=== PATIENT | male | born 1950 | race African-American/Black ===

== ENCOUNTER 2018-01-15 12:49 | Outpatient (CLI) | payer MEDICARE ==
--- NOTE | 2018-01-15 15:45 | MRI ---
MRI OF ABDOMEN WITHOUT CONTRAST: Date: 01/15/18 COMPARISON: 07/18/17. HISTORY: Malignant neoplasm of colon with hepatic metastasis. Status post chemotherapy. TECHNIQUE: Multiplanar, multisequence MR images were obtained of the abdomen without contrast. FINDINGS: No focal liver lesions are appreciated on this noncontrast examination. No loss of signal is seen on [id number]-gnabl images to suggest fatty infiltration. There is a large cyst in the right kidney measured 7.9 cm in greatest dimension. No abnormality seen in the left kidney, adrenal glands, spleen, or pancreas. The gallbladder is unremarkable. No abdominal adenopathy is seen. No marrow signal abnormality is present. IMPRESSION: 1. No focal hepatic abnormality. 2. Right renal cyst. POS: [facility]
--- NOTE | 2018-01-15 17:54 | PET ---
PET CT: 01/15/18 HISTORY: 67-year-old male with metastatic colon cancer. Status post last chemotherapy in June 2017. TECHNIQUE: PET scan and CT attenuation correction is performed from the base of the brain to the proximal thighs following intravenous administration of 13 millicuries 15-fluorodeoxyglucose in the left antecubital fossa. Imaging was performed after an uptake interval of 54 minutes. COMPARISON: PET CT dated 10/18/17 from [facility]. FINDINGS: There is physiologic activity in the GI and tracts, salivary glands, and visualized portions of th e brain. The previously noted hypermetabolic activity in the left tonsillar region has resolved. The hypermetabolic focus is seen in the region of the anterior aspect of the lateral segment of the l eft lobe of the liver with an SUV of 4.5. This is new since the last exam. No nargis hypermetabolism is seen in the neck, chest, abdomen, or pelvis. There is an 8 mm left inguin al lymph node with mild FDG localization and SUV of 2. No hypermetabolic pulmonary nodules, adrenal or skeletal lesions are seen. The CT scan used for attenuation correction demonstrates tiny pleural effusions. No ascites is identi fied. A 5.5 cm cortical cyst arising from the inferior right kidney is stable. Changes of right hemic olectomy are again noted. IMPRESSION: New solitary left lobe hepatic metastasis since 10/18/17. POS: [facility]
== END 2018-01-15 12:50 | disposition home or self-care (01) ==
LOC: PET 12:49
PROVIDERS: ATTEND Internal Medicine Hematology & Oncology
DX: C18.9 Malignant neoplasm of colon, unspecified (principal); N28.1 Cyst of kidney, acquired; C78.02 Secondary malignant neoplasm of left lung
CPT/HCPCS: 74181; 78815; A9552

== ENCOUNTER 2018-03-28 11:02 | Outpatient (CLI) | payer MEDICARE ==
--- NOTE | 2018-03-28 16:12 | PET ---
PET ATTENUATION CORRECTION: 03/28/18 COMPARISON: 01/15/18 TECHNIQUE: PET scan with CT attenuation correction performed from the base of the brain to the proximal thighs f ollowing the intravenous administration of 10.3 millicuries of [id number]. HISTORY: Hepatic metastases secondary to colon cancer. FINDINGS: HEAD AND NECK: No abnormal FDG localization. CHEST: No abnormal FDG localization. ABDOMEN AND PELVIS: Redemonstration of a hyper metabolic focus involving the left hepatic lobe with a current SUV of 5.4. Previously, maximum SUV measures 4.5. There is a new, second hypermetabolic focus in the liver in the lateral aspect of the left hepatic lo be with a maximum SUV of 4.3. Additional hypermetabolic nodules in the liver are not appreciated. No additional abnormal FDG localization in the abdomen or pelvis. CT used for attenuation correction de monstrates exophytic cysts in the right kidney. OSSEOUS STRUCTURES: No abnormal FDG localization. IMPRESSION: Increased FDG avidity is suspected in the lesion in the left hepatic lobe which was noted on previous PET imaging. There is a new second lesion in the hepatic parenchyma suggesting progression of metast ases. POS: [facility]
== END 2018-03-28 11:03 | disposition home or self-care (01) ==
LOC: PET 11:02
PROVIDERS: ATTEND Internal Medicine Hematology & Oncology
DX: C78.7 Secondary malignant neoplasm of liver and intrahepatic bile duct (principal); C18.9 Malignant neoplasm of colon, unspecified; N28.9 Disorder of kidney and ureter, unspecified
CPT/HCPCS: 78815; A9552

== ENCOUNTER 2018-06-27 09:00 | Outpatient (CLI) | payer MEDICARE ==
--- NOTE | 2018-06-27 16:13 | PET ---
PET CT: INDICATION: Colon cancer. RADIOPHARMACEUTICAL: 14 mCi F18-FDG IV were administered. CT images were obtained from the skull base through the mid thighs. Comparison made with prior exam dated 03/28/18. FINDINGS: The biodistribution for the examination appears acceptable. Head/Neck: There is some mild metabolic uptake seen involving the region of the palatine tonsils, vocal cords, a nd salivary glands. There is some mild uptake seen within the musculature of the neck, as well as the upper torso. No hypermetabolic lymphadenopathy or mass is seen within the head or neck region. Thorax: No hypermetabolic pulmonary nodule or pleural effusion is evident. No hypermetabolic lymphadenopathy is evident. There is a right chest wall port in place. There is severe emphysema. There is a calcifie d granuloma in the right lower lobe. ABDOMEN/PELVIS: The previously seen hypermetabolic foci within the left hepatic lobe suspicious for metastatic diseas e is no longer demonstrated. There is background liver activity present. There is a prominent right r enal cyst. No hypermetabolic lymphadenopathy or ascites is evident. Skin/Osseous Structures: There is a nonspecific mildly hypermetabolic right inguinal lymph node measuring 1.1 cm with a peak a ctivity of 3.97 and mean activity of 3.44. This is new from the prior exam. There is an additional hy permetabolic focus seen involving the skin of the right aspect of the scrotum on image 239 with peak SUV activity of 5.07 and mean activity of 5.76. This is nonspecific, but new from the prior exam. No hypermetabolic osseous lesion is identified. IMPRESSION: 1. Findings consistent with response to therapy. The hypermetabolic lesions involving the left hepat ic lobe are no longer demonstrated. Would recommend consideration for a CT of the abdomen utilizing l iver mass protocol to evaluate the lesions for response to therapy. The extent of the background radi onuclide activity on the noncontrast PET CT examination limits evaluation for smaller metastatic lesi ons within the liver. 2. Nonspecific hypermetabolic right inguinal lymph node and hypermetabolic activity seen within the right aspect of the scrotal wall. This may reflect a localized infection with reactive lymphadenopath y. Recommend correlation with the clinical exam. POS: [facility]
== END 2018-06-27 09:01 | disposition home or self-care (01) ==
LOC: PET 09:00
PROVIDERS: ATTEND Internal Medicine Hematology & Oncology
DX: C18.9 Malignant neoplasm of colon, unspecified (principal); N18.9 Chronic kidney disease, unspecified; K76.9 Liver disease, unspecified
CPT/HCPCS: 78815; A9552

== ENCOUNTER 2019-02-25 13:46 | Outpatient (CLI) | payer MEDICARE ==
--- NOTE | 2019-02-25 15:58 | PET ---
PET CT: HISTORY: A 68-year-old male with malignant neoplasm of the ascending colon. Colon cancer with liver metastasis . Evaluate for subsequent treatment. Last chemotherapy was on 02/12/2019. COMPARISON: PET CT dated 10/17/2018. TECHNIQUE: PET scanning with CT attenuation correction was performed from the base of the brain through the prox imal thighs following the intravenous administration of 12.2 millicuries of F18 fluorodeoxyglucose in the right antecubital fossa. FINDINGS: No nargis hypometabolism is seen in the neck, chest, axillae, abdomen, pelvis or inguinal regions. No hypermetabolic pulmonary nodules or liver, adrenal or skeletal lesions are seen. There is physiologic activity in the GI and tracts and in the visualized portions of the brain. Th ere is photopenia in the region of a large right renal cyst. CT scan used for attenuation correction demonstrates no evidence of pleural effusions or ascites. The re is a 6.5 cm cyst arising from the inferior pole of the right kidney. IMPRESSION: No evidence of metastatic disease. POS: [facility]
== END 2019-02-25 13:47 | disposition home or self-care (01) ==
LOC: PET 13:46
PROVIDERS: ATTEND Internal Medicine Hematology & Oncology
DX: C18.2 Malignant neoplasm of ascending colon (principal); C22.9 Malignant neoplasm of liver, not specified as primary or secondary
CPT/HCPCS: 78815; A9552

== ENCOUNTER 2019-05-27 08:04 | Outpatient (CLI) | payer MEDICARE, OTHER ==
--- NOTE | 2019-05-27 12:01 | PET ---
PET CT: HISTORY: A 68-year-old male with malignant neoplasm of ascending colon. Colon cancer with liver metastasis. Evaluate for subsequent treatment. Last chemotherapy was 2 weeks ago. TECHNIQUE: PET scanning with CT attenuation correction was performed from the base of the brain through the prox imal thighs following the intravenous administration of 10.5 mCi [id number] in the right hand. COMPARISON: PET CT dated 02/25/2019. FINDINGS: No nargis hypermetabolism is seen in the neck, chest, axillae, abdomen, pelvis, or inguinal regions. No hypermetabolic pulmonary nodules or liver, adrenal, or skeletal lesions are identified. A focus of increased uptake is seen in the region of the right ascending colon where adjacent postop changes are noted on the CT scan. This demonstrates an SUV of 4.6 and should be evaluated with colon oscopy. There is physiologic activity in the GI and tracts, visualized portions of the brain, and the sali vary glands. Photopenia in the region of a large right renal cyst is again seen. CT scan used for attenuation correction demonstrates no evidence of pleural or pericardial effusions. IMPRESSION: 1. No evidence of metastatic disease. 2. Hypermetabolic focus in the ascending colon should be evaluated with colonoscopy. POS: [facility]
== END 2019-05-27 08:05 | disposition home or self-care (01) ==
LOC: PET 08:04
PROVIDERS: ATTEND Internal Medicine Hematology & Oncology
DX: C18.2 Malignant neoplasm of ascending colon (principal); C22.9 Malignant neoplasm of liver, not specified as primary or secondary; R94.8 Abnormal results of function studies of other organs and systems
CPT/HCPCS: 78815; A9552

== ENCOUNTER 2020-03-23 09:00 | Outpatient (CLI) | payer MEDICARE, OTHER ==
--- NOTE | 2020-03-23 11:35 | PET ---
Radionucleotide PET scan with CT attenuation correction HISTORY: Malignant neoplasm of a sending colon. Restaging. COMPARISON: 12/09/2019. FINDINGS: Physiologic uptake is evident throughout the enteric system and along each urinary tract.. No pathologic areas of radiotracer uptake. Photopenic defect apparent at the large right renal cyst. Postoperative changes of the right colon are apparent. IMPRESSION : No evidence of recurrent disease.
== END 2020-03-23 09:01 | disposition home or self-care (01) ==
LOC: PET 09:00
PROVIDERS: ATTEND Internal Medicine Hematology & Oncology
DX: C18.2 Malignant neoplasm of ascending colon (principal)
CPT/HCPCS: 78815; A9552

== ENCOUNTER 2020-06-22 08:57 | Outpatient (CLI) | payer MEDICARE, OTHER | END 2020-06-22 08:58 | disposition home or self-care (01) | LOC: PET 08:57 | PROVIDERS: ATTEND Internal Medicine Hematology & Oncology | DX: C18.2 Malignant neoplasm of ascending colon (principal) | CPT/HCPCS: 78815; A9552 ==

== ENCOUNTER 2020-06-28 13:25 | Outpatient (CLI) | payer MEDICARE, OTHER ==
[~2020-06-28 13:25] MED LIST: Iopamidol 300 61% 50 ML VIAL FS ONE
[2020-06-28] MEDS ORDERED: Sodium Chloride 0.9% 10 ML ONE (13:39)
== END 2020-06-28 13:26 | disposition home or self-care (01) ==
LOC: RAD 13:25
PROVIDERS: ATTEND Internal Medicine Hematology & Oncology
DX: Z45.2 Encounter for adjustment and management of vascular access device (principal); C18.2 Malignant neoplasm of ascending colon
CPT/HCPCS: 36598; J1642; Q9967

== ENCOUNTER 2020-07-05 10:28 | Outpatient (CLI) | payer MEDICARE, OTHER ==
[2020-07-05 12:18] LABS: #Basophils 0.1 10x3/uL (0.0-0.2); #Eosinphils 0.4 10x3/uL (0.0-0.5); #Monocytes 0.8 10x3/uL (0.0-1.1); #Neutrophils 7.1 10x3/uL (1.5-8.4); %Basophils 0.6 % (0.0-2.0); %Eosinophils 3.8 % (0.0-6.0); %Lymphocytes 14.5 % (18.0-47.0); %Monocytes 7.7 % (0.0-10.0); %Neutrophils 72.4 % (40.0-75.0); Hemoglobin 11.6 g/dL (13.5-17.5); Mean Corpuscular HGB CONC 32.7 g/dL (32.0-36.0); Mean Corpuscular Hemoglobin 30.4 pg (27.0-33.0); Mean Corpuscular Volume 93.2 fl (81.2-95.1); Mean Platelet Volume 10.2 fl (7.4-10.4); Platelet Count 297 10x3/uL (150-450); RBC Distribution Width 17.8 % (11.5-14.5); Red Blood Cell (RBC) Count 3.81 10x6/uL (4.32-5.72); White Blood Cell (WBC) Count 9.8 10x3/uL (3.5-10.5)
[2020-07-05 12:27] LABS: Anion Gap 18 mmol/L (10-20); BUN (Urea Nitrogen) 25 mg/dL (8.4-25.7); Calc. Creatinine Clearance 0 mL/min (70-130); Calcium 9.1 mg/dL (7.8-10.44); Carbon Dioxide 25 mmol/L (23-31); Chloride 103 mmol/L (98-107); Glucose 82 mg/dL (80-115); Potassium 3.7 mmol/L (3.5-5.1); Sodium 142 mmol/L (136-145)
[2020-07-06 01:17] LABS: SARS-CoV-2 PCR by NAA Not Detected (NotDetected)
== END 2020-07-05 10:29 | disposition home or self-care (01) ==
LOC: LABBT 10:28
PROVIDERS: ATTEND Internal Medicine Hematology & Oncology
DX: Z01.818 Encounter for other preprocedural examination (principal); Z20.822 Contact with and (suspected) exposure to COVID-19
CPT/HCPCS: 80048; 85025; 93005; U0003; U0005; 87635; 93010

== ENCOUNTER 2020-07-08 10:17 | Day surgery (SDC) | payer MEDICARE, OTHER ==
[2020-07-07 12:16] VITALS: BMI 21.9
[2020-07-08] MEDS ORDERED: Lidocaine 1% w/Epinephrine 1:100K 20 ML VIAL ONE (10:36)
[2020-07-08] MEDS ORDERED: Bupivacaine 0.25% HCL 30 ML VIAL ONE (10:36)
[2020-07-08] MEDS ORDERED: Acetaminophen 500 MG TAB ONE (10:37)
[2020-07-08] MEDS ORDERED: Ketorolac Tromethamine 30 MG/ML VIAL ONE (10:37)
[2020-07-08] MEDS ORDERED: Fentanyl 100 MCG/2 ML VIAL ONE (11:35)
[2020-07-08] MEDS ORDERED: PROPOFOL 200 MG/20 ML VIAL ONE (11:53)
[2020-07-08] MEDS ORDERED: Dexamethasone 20 MG/5 ML VIAL ONE (11:53)
[2020-07-08] MEDS ORDERED: ePHEDrine Sulfate 50 MG/10 ML VIAL ONE (11:53)
[2020-07-08] MEDS ORDERED: Ondansetron PF 4 MG/2 ML Vial ONE (11:53)
== END 2020-07-08 14:20 | disposition home or self-care (01) ==
LOC: SDC 10:17
PROVIDERS: ATTEND Specialist
PROC: 02HV33Z Insertion of Infusion Device into Superior Vena Cava, Percutaneous Approach (ICD-10-PCS; principal; 2020-07-08)
DX: T82.868A Thrombosis due to vascular prosthetic devices, implants and grafts, initial encounter (principal); C18.9 Malignant neoplasm of colon, unspecified; I10 Essential (primary) hypertension; F17.210 Nicotine dependence, cigarettes, uncomplicated; J45.909 Unspecified asthma, uncomplicated; Z79.899 Other long term (current) drug therapy; I82.C11 Acute embolism and thrombosis of right internal jugular vein
CPT/HCPCS: 36561; 36590; 71045; 71260; 93971 ×2; C1788; J0690; J1100; J1642; J1885; J2405; J2704; J3010; S0020

== ENCOUNTER 2020-10-28 | Outpatient (CLI) | payer MEDICARE, OTHER | END 2020-10-28 12:27 | disposition home or self-care (01) | DX: C18.2 Malignant neoplasm of ascending colon (principal) | CPT/HCPCS: 78815; A9552 ==

== ENCOUNTER 2021-01-10 10:46 | Inpatient (IN) | payer MEDICARE, OTHER ==
[2021-01-10 11:45] LABS: #Basophils 0.1 thou/uL (0.0-0.2); #Eosinphils 0.2 thou/uL (0.0-0.7); #Lymphocytes 2.6 thou/uL (1.20-3.40); #Monocytes 1.7 thou/uL (0.11-0.59); #Neutrophils 9.5 thou/uL (1.40-6.50); %Basophils 1.1 % (0.0-1.0); %Eosinophils 1.4 % (0.0-10.0); %Lymphocytes 18.5 % (21.0-51.0); %Monocytes 11.9 % (0.0-10.0); %Neutrophils 67.2 % (42.0-75.0); Hemoglobin 10.2 g/dL (14.0-18.0); Mean Corpuscular HGB CONC 32.6 g/dL (32.0-36.0); Mean Corpuscular Hemoglobin 31.6 pg (27.0-31.0); Mean Platelet Volume 8.2 fL (7.4-10.4); Platelet Count 208 thou/uL (130-400); RBC Distribution Width 17.4 % (11.5-14.5); Red Blood Cell (RBC) Count 3.24 mill/uL (4.70-6.10); White Blood Cell (WBC) Count 14.2 thou/uL (4.8-10.8)
[2021-01-10 12:15] LABS: ALT (SGPT) 11 U/L (8-55); AST (SGOT) 21 U/L (5-34); Albumin 3.1 g/dL (3.4-4.8); Alkaline Phosphatase 92 U/L (40-110); Anion Gap 17 mmol/L (10-20); BUN (Urea Nitrogen) 29 mg/dL (8.4-25.7); Bilirubin, Total 0.9 mg/dL (0.2-1.2); Calc. Creatinine Clearance 0 mL/min (70-130); Calcium 9.7 mg/dL (7.8-10.44); Carbon Dioxide 22 mmol/L (23-31); Chloride 101 mmol/L (98-107); Globulin 4.2 g/dL (2.4-3.5); Glucose 87 mg/dL (80-115); Potassium 4.3 mmol/L (3.5-5.1); Protein, Total 7.3 g/dL (5.8-8.1); Sodium 136 mmol/L (136-145)
[2021-01-10 12:28] LABS: SARS-CoV-2 NAA Rapid Test Not Detected (NotDetected)
[2021-01-10] MEDS ORDERED: Cefepime 2 GM VIAL ONE (13:05)
[2021-01-10] MEDS ORDERED: Vancomycin 1 GM/200 ML BAG ONE (14:11)
[2021-01-10 14:33] LABS: Analyzer IN Cardio ER
[2021-01-10 14:34] LABS: Actual Bicarbonate (HCO3v) 26 mEq/L (22-28); Base Excess 0.7 mEq/L (-2.0 to +3.0); Hemoglobin (Hb) 10.5 g/dL (12.6-17.4)
[2021-01-10 14:35] LABS: Calcium, Ionized (venous) 1.21 mmol/L (1.16-1.32); Chloride (VBG) 99 mmol/L (98-106); Sodium 142.1 mmol/L (133-146)
[2021-01-10] MEDS ORDERED: Acetaminophen 325 MG TAB PER TUBE PRN (18:23)
[2021-01-10] MEDS ORDERED: Atorvastatin Calcium 40 MG TAB PER TUBE SCH (21:00)
[2021-01-10 21:41] LABS: Iron 24 ug/dL (65-175); Iron Binding Capacity, Total 236 mcg/dL (261-462)
[2021-01-10 21:44] LABS: Troponin I 0.022 ng/mL (< 0.028)
[2021-01-10] MEDS: levETIRAcetam 500 mg/5 ml Oral Solution PER TUBE SCH (22:02)
[2021-01-10 22:06] LABS: Ferritin 1418.64 ng/mL (22-322)
[2021-01-10] MEDS ORDERED: Vancomycin HCl 500 MG in Sodium Chloride 0.9% 100 ML IVPB SCH (23:00)
[2021-01-11] MEDS: Cefepime 2 GM in Sodium Chloride 0.9% 100 ML IVPB SCH ×2 (01:10→14:22)
[2021-01-11 02:06] LABS: Troponin I 0.016 ng/mL (< 0.028)
[2021-01-11 05:23] LABS: #Basophils 0.1 thou/uL (0.0-0.2); #Eosinphils 0.5 thou/uL (0.0-0.7); #Lymphocytes 2.1 thou/uL (1.20-3.40); #Monocytes 1.4 thou/uL (0.11-0.59); #Neutrophils 6.8 thou/uL (1.40-6.50); %Basophils 0.7 % (0.0-1.0); %Eosinophils 4.4 % (0.0-10.0); %Lymphocytes 19.5 % (21.0-51.0); %Neutrophils 62.5 % (42.0-75.0); Hemoglobin 10.1 g/dL (14.0-18.0); Mean Corpuscular HGB CONC 33.5 g/dL (32.0-36.0); Mean Corpuscular Hemoglobin 32.7 pg (27.0-31.0); Mean Corpuscular Volume 97.7 fL (78.0-98.0); Mean Platelet Volume 8.4 fL (7.4-10.4); Platelet Count 180 thou/uL (130-400); RBC Distribution Width 17.4 % (11.5-14.5); Red Blood Cell (RBC) Count 3.09 mill/uL (4.70-6.10); White Blood Cell (WBC) Count 10.8 thou/uL (4.8-10.8)
[2021-01-11 05:39] LABS: Anion Gap 16 mmol/L (10-20); BUN (Urea Nitrogen) 32 mg/dL (8.4-25.7); Calc. Creatinine Clearance 34 mL/min (70-130); Calcium 9.6 mg/dL (7.8-10.44); Carbon Dioxide 25 mmol/L (23-31); Chloride 104 mmol/L (98-107); Glucose 70 mg/dL (80-115); Potassium 4.2 mmol/L (3.5-5.1); Sodium 141 mmol/L (136-145)
[2021-01-11 05:44] LABS: Troponin I 0.026 ng/mL (< 0.028)
[2021-01-11] MEDS ORDERED: Enoxaparin Sodium 30 MG/0.3 ML SYRINGE SC SCH (09:00)
[2021-01-11] MEDS ORDERED: Aspirin 325 MG TAB PER TUBE SCH (09:00)
[2021-01-11] MEDS ORDERED: Amlodipine 10 MG TAB PER TUBE SCH (09:00)
[2021-01-11] MEDS: levETIRAcetam 500 mg/5 ml Oral Solution PER TUBE SCH ×2 (09:08→20:30)
[2021-01-11 13:09] LABS: Bacteria/HPF None Seen HPF (None Seen); Bilirubin Negative (Negative); Blood, Urine 3+ (Negative); Clarity Clear (Clear); Glucose, Urine (Dipstick) Normal (Negative); Ketone, Urine Negative (Negative); Leukocyte Negative Leu/uL (Negative); Nitrite Negative (Negative); Protein, Urine (Dipstick) 100 mg/dL (Neg-Trace); RBC/HPF 21-50 HPF (0-3); Specific Gravity, Urine 1.015 (1.002-1.036); Urobilinogen Normal mg/dL (Less than 2); WBC/HPF 21-50 HPF (0-3)
[2021-01-11 13:15] LABS: Urine Culture Reflex No No
[2021-01-11 13:41] LABS: Legionella Urinary Ag Negative (Negative); Strep pneumo Urine Ag NEGATIVE (NEGATIVE)
[2021-01-11] MEDS: Melatonin 3 MG TAB PER TUBE SCH (20:29)
[2021-01-11] MEDS: Saccharomyces boulardii 250 MG CAP PER TUBE SCH (20:29)
[2021-01-11] MEDS: Atorvastatin Calcium 40 MG TAB PER TUBE SCH (20:30)
[2021-01-11] MEDS ORDERED: Vancomycin 1 GM in Premix Bag 1 BAG IVPB SCH (21:00)
[2021-01-11] MEDS ORDERED: Cefepime 2 GM in Sodium Chloride 0.9% 100 ML IVPB SCH (22:00)
[2021-01-12] MEDS: Cefepime 2 GM in Sodium Chloride 0.9% 100 ML IVPB SCH ×2 (01:21→14:11)
[2021-01-12 06:34] LABS: #Basophils 0.1 thou/uL (0.0-0.2); #Lymphocytes 2.4 thou/uL (1.20-3.40); #Monocytes 1.5 thou/uL (0.11-0.59); #Neutrophils 6.6 thou/uL (1.40-6.50); %Eosinophils 8.5 % (0.0-10.0); %Lymphocytes 20.6 % (21.0-51.0); %Monocytes 13.1 % (0.0-10.0); %Neutrophils 56.8 % (42.0-75.0); Mean Corpuscular HGB CONC 34.4 g/dL (32.0-36.0); Mean Corpuscular Hemoglobin 33.1 pg (27.0-31.0); Mean Corpuscular Volume 96.3 fL (78.0-98.0); Mean Platelet Volume 8.4 fL (7.4-10.4); Platelet Count 217 thou/uL (130-400); RBC Distribution Width 18.1 % (11.5-14.5); Red Blood Cell (RBC) Count 3.02 mill/uL (4.70-6.10); White Blood Cell (WBC) Count 11.6 thou/uL (4.8-10.8)
[2021-01-12 06:46] LABS: Hemoglobin A1c 4.9 % (4.0-6.0)
[2021-01-12 07:01] LABS: ALT (SGPT) 14 U/L (8-55); AST (SGOT) 24 U/L (5-34); Albumin 2.9 g/dL (3.4-4.8); Alkaline Phosphatase 92 U/L (40-110); Anion Gap 16 mmol/L (10-20); BUN (Urea Nitrogen) 33 mg/dL (8.4-25.7); Bilirubin, Total 0.8 mg/dL (0.2-1.2); Calc. Creatinine Clearance 32 mL/min (70-130); Calcium 9.3 mg/dL (7.8-10.44); Carbon Dioxide 24 mmol/L (23-31); Cardiac Risk 2.8 (Less than 4.5); Chloride 106 mmol/L (98-107); Cholesterol 131 mg/dl (< 200 Desired); Globulin 3.7 g/dL (2.4-3.5); Glucose 117 mg/dL (80-115); HDL Cholesterol 46 mg/dL (>60 Neg Risk); LDL Cholesterol, Calculated 69 mg/dL; Potassium 4.1 mmol/L (3.5-5.1); Protein, Total 6.6 g/dL (5.8-8.1); Sodium 142 mmol/L (136-145); Triglycerides 82 mg/dL (Less than 150)
[2021-01-12] MEDS: Saccharomyces boulardii 250 MG CAP PER TUBE SCH ×2 (08:08→23:02)
[2021-01-12] MEDS: Pantoprazole 40 MG GRANULES PACKET PER TUBE SCH (08:08)
[2021-01-12] MEDS: Amlodipine 10 MG TAB PER TUBE SCH (08:08)
[2021-01-12] MEDS: FLUoxetine HCl 20 MG/5 ML UDCUP PO SCH (08:09)
[2021-01-12] MEDS: levETIRAcetam 500 mg/5 ml Oral Solution PER TUBE SCH ×2 (08:10→23:01)
[2021-01-12] MEDS ORDERED: Aspirin 325 MG TAB PER TUBE SCH (09:00)
[2021-01-12] MEDS ORDERED: Enoxaparin Sodium 40 MG/0.4 ML SYRINGE SC SCH (09:00)
[2021-01-12] MEDS ORDERED: Lorazepam 2 MG/ML VIAL SLOW IVP SCH (16:00)
[2021-01-12] MEDS ORDERED: Lorazepam 2 MG/ML VIAL ONE (16:10)
[2021-01-12] MEDS: Melatonin 3 MG TAB PER TUBE SCH (23:02)
[2021-01-12] MEDS: Atorvastatin Calcium 40 MG TAB PER TUBE SCH (23:02)
[2021-01-13] MEDS: Cefepime 2 GM in Sodium Chloride 0.9% 100 ML IVPB SCH ×2 (00:11→13:15)
[2021-01-13] MEDS: Pantoprazole 40 MG GRANULES PACKET PER TUBE SCH (08:32)
[2021-01-13] MEDS: Saccharomyces boulardii 250 MG CAP PER TUBE SCH ×2 (08:32→21:26)
[2021-01-13] MEDS: Amlodipine 10 MG TAB PER TUBE SCH (08:32)
[2021-01-13] MEDS ORDERED: FLU VACC QS2021-22(65YR UP)/PF 240 MCG/0.7 ML SYRINGE IM ONE (09:00)
[2021-01-13 09:25] LABS: #Basophils 0.1 thou/uL (0.0-0.2); #Eosinphils 1.1 thou/uL (0.0-0.7); #Lymphocytes 2.7 thou/uL (1.20-3.40); #Monocytes 1.6 thou/uL (0.11-0.59); #Neutrophils 6.9 thou/uL (1.40-6.50); %Basophils 0.8 % (0.0-1.0); %Eosinophils 8.7 % (0.0-10.0); %Lymphocytes 21.7 % (21.0-51.0); %Monocytes 12.8 % (0.0-10.0); %Neutrophils 55.9 % (42.0-75.0); Hemoglobin 9.9 g/dL (14.0-18.0); Mean Corpuscular HGB CONC 32.5 g/dL (32.0-36.0); Mean Corpuscular Hemoglobin 31.6 pg (27.0-31.0); Mean Corpuscular Volume 97.1 fL (78.0-98.0); Mean Platelet Volume 8.9 fL (7.4-10.4); Platelet Count 223 thou/uL (130-400); Red Blood Cell (RBC) Count 3.13 mill/uL (4.70-6.10); White Blood Cell (WBC) Count 12.3 thou/uL (4.8-10.8)
[2021-01-13 09:34] LABS: ALT (SGPT) 15 U/L (8-55); AST (SGOT) 19 U/L (5-34); Albumin 2.9 g/dL (3.4-4.8); Alkaline Phosphatase 102 U/L (40-110); Anion Gap 16 mmol/L (10-20); BUN (Urea Nitrogen) 38 mg/dL (8.4-25.7); Bilirubin, Total 0.9 mg/dL (0.2-1.2); Calc. Creatinine Clearance 32 mL/min (70-130); Calcium 9.2 mg/dL (7.8-10.44); Carbon Dioxide 25 mmol/L (23-31); Chloride 106 mmol/L (98-107); Globulin 3.8 g/dL (2.4-3.5); Glucose 120 mg/dL (80-115); Phosphorus 3.9 mg/dL (2.3-4.7); Protein, Total 6.7 g/dL (5.8-8.1); Sodium 143 mmol/L (136-145)
[2021-01-13] MEDS: FLUoxetine HCl 20 MG/5 ML UDCUP PO SCH (10:17)
[2021-01-13] MEDS: levETIRAcetam 500 mg/5 ml Oral Solution PER TUBE SCH ×2 (10:17→21:25)
[2021-01-13] MEDS ORDERED: Lactated Ringer's 500 ML IV SCH (10:45)
[2021-01-13] MEDS: Atorvastatin Calcium 40 MG TAB PER TUBE SCH (21:26)
[2021-01-13] MEDS: Melatonin 3 MG TAB PER TUBE SCH (21:26)
[2021-01-14] MEDS: Cefepime 2 GM in Sodium Chloride 0.9% 100 ML IVPB SCH (02:01)
[2021-01-14 05:38] LABS: #Basophils 0.1 thou/uL (0.0-0.2); #Lymphocytes 3.1 thou/uL (1.20-3.40); #Monocytes 1.5 thou/uL (0.11-0.59); #Neutrophils 8.7 thou/uL (1.40-6.50); %Basophils 0.7 % (0.0-1.0); %Eosinophils 7.2 % (0.0-10.0); %Lymphocytes 21.6 % (21.0-51.0); %Monocytes 10.3 % (0.0-10.0); %Neutrophils 60.1 % (42.0-75.0); Hemoglobin 10.1 g/dL (14.0-18.0); Mean Corpuscular HGB CONC 34.1 g/dL (32.0-36.0); Mean Corpuscular Hemoglobin 32.8 pg (27.0-31.0); Mean Corpuscular Volume 96.3 fL (78.0-98.0); Mean Platelet Volume 8.7 fL (7.4-10.4); Platelet Count 210 thou/uL (130-400); RBC Distribution Width 18.5 % (11.5-14.5); Red Blood Cell (RBC) Count 3.08 mill/uL (4.70-6.10); White Blood Cell (WBC) Count 14.4 thou/uL (4.8-10.8)
[2021-01-14 06:05] LABS: ALT (SGPT) 11 U/L (8-55); AST (SGOT) 18 U/L (5-34); Alkaline Phosphatase 105 U/L (40-110); Anion Gap 14 mmol/L (10-20); BUN (Urea Nitrogen) 40 mg/dL (8.4-25.7); Bilirubin, Total 0.9 mg/dL (0.2-1.2); Calc. Creatinine Clearance 30 mL/min (70-130); Calcium 9.6 mg/dL (7.8-10.44); Carbon Dioxide 25 mmol/L (23-31); Chloride 108 mmol/L (98-107); Globulin 3.7 g/dL (2.4-3.5); Glucose 98 mg/dL (80-115); Magnesium 1.9 mg/dL (1.6-2.6); Phosphorus 3.7 mg/dL (2.3-4.7); Protein, Total 6.7 g/dL (5.8-8.1); Sodium 143 mmol/L (136-145)
[2021-01-14] MEDS ORDERED: Furosemide 20 MG/2 ML VIAL SLOW IVP SCH ×2 (07:30→14:00)
[2021-01-14] MEDS: Amlodipine 10 MG TAB PER TUBE SCH (10:14)
[2021-01-14] MEDS: Saccharomyces boulardii 250 MG CAP PER TUBE SCH ×2 (10:14→22:35)
[2021-01-14] MEDS: levETIRAcetam 500 mg/5 ml Oral Solution PER TUBE SCH ×2 (10:15→22:35)
[2021-01-14] MEDS: Pantoprazole 40 MG GRANULES PACKET PER TUBE SCH (10:15)
[2021-01-14] MEDS: FLUoxetine HCl 20 MG/5 ML UDCUP PO SCH (14:03)
[2021-01-14] MEDS: Atorvastatin Calcium 40 MG TAB PER TUBE SCH (22:35)
[2021-01-14] MEDS: Melatonin 3 MG TAB PER TUBE SCH (22:36)
[2021-01-15] MEDS: Cefepime 2 GM in Sodium Chloride 0.9% 100 ML IVPB SCH (02:22)
[2021-01-15 07:06] LABS: ALT (SGPT) 12 U/L (8-55); AST (SGOT) 18 U/L (5-34); Albumin 2.8 g/dL (3.4-4.8); Alkaline Phosphatase 101 U/L (40-110); Anion Gap 13 mmol/L (10-20); BUN (Urea Nitrogen) 50 mg/dL (8.4-25.7); Bilirubin, Total 0.5 mg/dL (0.2-1.2); Calc. Creatinine Clearance 26 mL/min (70-130); Calcium 9.2 mg/dL (7.8-10.44); Carbon Dioxide 26 mmol/L (23-31); Chloride 105 mmol/L (98-107); Globulin 3.6 g/dL (2.4-3.5); Glucose 146 mg/dL (80-115); Magnesium 1.9 mg/dL (1.6-2.6); Phosphorus 3.3 mg/dL (2.3-4.7); Protein, Total 6.4 g/dL (5.8-8.1); Sodium 140 mmol/L (136-145)
[2021-01-15 07:40] LABS: #Basophils 0.1 thou/uL (0.0-0.2); #Eosinphils 1.1 thou/uL (0.0-0.7); #Lymphocytes 3.2 thou/uL (1.20-3.40); #Neutrophils 7.8 thou/uL (1.40-6.50); %Basophils 1.1 % (0.0-1.0); %Eosinophils 8.4 % (0.0-10.0); %Lymphocytes 24.1 % (21.0-51.0); %Monocytes 7.6 % (0.0-10.0); %Neutrophils 58.8 % (42.0-75.0); Hemoglobin 9.8 g/dL (14.0-18.0); MDiff Complete? YES; Mean Corpuscular Volume 96.9 fL (78.0-98.0); Mean Platelet Volume 9.6 fL (7.4-10.4); Platelet Count 111 thou/uL (130-400); Platelet Morphology Comment Appears Decreased; RBC Distribution Width 18.3 % (11.5-14.5); Red Blood Cell (RBC) Count 3.07 mill/uL (4.70-6.10); White Blood Cell (WBC) Count 13.2 thou/uL (4.8-10.8)
[2021-01-15] MEDS: Aspirin Chewable 81 MG TAB PER TUBE SCH (10:42)
[2021-01-15] MEDS: FLUoxetine HCl 20 MG/5 ML UDCUP PO SCH (10:52)
[2021-01-15] MEDS: levETIRAcetam 500 mg/5 ml Oral Solution PER TUBE SCH ×2 (10:53→21:31)
[2021-01-15] MEDS: Amlodipine 10 MG TAB PER TUBE SCH (10:54)
[2021-01-15] MEDS: Saccharomyces boulardii 250 MG CAP PER TUBE SCH ×2 (10:55→21:31)
[2021-01-15] MEDS: Pantoprazole 40 MG GRANULES PACKET PER TUBE SCH (10:55)
[2021-01-15] MEDS: Melatonin 3 MG TAB PER TUBE SCH (21:31)
[2021-01-15] MEDS: Atorvastatin Calcium 40 MG TAB PER TUBE SCH (21:31)
[2021-01-15] MEDS ORDERED: Furosemide 40 MG/4 ML VIAL SLOW IVP SCH (22:45)
[2021-01-16] MEDS: Cefepime 2 GM in Sodium Chloride 0.9% 100 ML IVPB SCH (01:23)
[2021-01-16 05:49] LABS: #Basophils 0.1 thou/uL (0.0-0.2); #Eosinphils 1.6 thou/uL (0.0-0.7); #Lymphocytes 2.9 thou/uL (1.20-3.40); #Monocytes 1.4 thou/uL (0.11-0.59); #Neutrophils 8.9 thou/uL (1.40-6.50); %Basophils 0.5 % (0.0-1.0); %Eosinophils 10.5 % (0.0-10.0); %Lymphocytes 19.6 % (21.0-51.0); %Monocytes 9.6 % (0.0-10.0); %Neutrophils 59.8 % (42.0-75.0); Mean Corpuscular HGB CONC 31.8 g/dL (32.0-36.0); Mean Corpuscular Hemoglobin 31.1 pg (27.0-31.0); Mean Corpuscular Volume 98.1 fL (78.0-98.0); Mean Platelet Volume 9.3 fL (7.4-10.4); Platelet Count 249 thou/uL (130-400); RBC Distribution Width 18.4 % (11.5-14.5); Red Blood Cell (RBC) Count 3.22 mill/uL (4.70-6.10); White Blood Cell (WBC) Count 14.8 thou/uL (4.8-10.8)
[2021-01-16 05:57] LABS: ALT (SGPT) 14 U/L (8-55); AST (SGOT) 20 U/L (5-34); Alkaline Phosphatase 105 U/L (40-110); Anion Gap 14 mmol/L (10-20); BUN (Urea Nitrogen) 49 mg/dL (8.4-25.7); Bilirubin, Total 0.5 mg/dL (0.2-1.2); Calc. Creatinine Clearance 29 mL/min (70-130); Calcium 9.7 mg/dL (7.8-10.44); Carbon Dioxide 28 mmol/L (23-31); Chloride 106 mmol/L (98-107); Globulin 3.8 g/dL (2.4-3.5); Glucose 110 mg/dL (80-115); Magnesium 1.8 mg/dL (1.6-2.6); Phosphorus 3.8 mg/dL (2.3-4.7); Protein, Total 6.8 g/dL (5.8-8.1); Sodium 144 mmol/L (136-145)
[2021-01-16] MEDS: Pantoprazole 40 MG GRANULES PACKET PER TUBE SCH (09:23)
[2021-01-16] MEDS: levETIRAcetam 500 mg/5 ml Oral Solution PER TUBE SCH ×2 (09:23→21:21)
[2021-01-16] MEDS: Saccharomyces boulardii 250 MG CAP PER TUBE SCH ×2 (09:24→21:21)
[2021-01-16] MEDS: Aspirin Chewable 81 MG TAB PER TUBE SCH (09:24)
[2021-01-16] MEDS: Amlodipine 10 MG TAB PER TUBE SCH (09:24)
[2021-01-16] MEDS: FLUoxetine HCl 20 MG/5 ML UDCUP PO SCH (09:24)
[2021-01-16] MEDS: Melatonin 3 MG TAB PER TUBE SCH (21:21)
[2021-01-16] MEDS: Atorvastatin Calcium 40 MG TAB PER TUBE SCH (21:21)
[2021-01-16] MEDS ORDERED: Amoxicillin/Potassium Clav 875 MG TAB PO SCH (22:00)
[2021-01-16] MEDS ORDERED: Enoxaparin Sodium 30 MG/0.3 ML SYRINGE SC SCH (22:00)
[2021-01-16] MEDS ORDERED: Furosemide 40 MG/4 ML VIAL SLOW IVP SCH (22:15)
[2021-01-17] MEDS ORDERED: Furosemide 40 MG/4 ML VIAL SLOW IVP SCH (05:00)
[2021-01-17 06:00] LABS: #Basophils 0.1 thou/uL (0.0-0.2); #Eosinphils 1.4 thou/uL (0.0-0.7); #Monocytes 0.7 thou/uL (0.11-0.59); #Neutrophils 10.6 thou/uL (1.40-6.50); %Basophils 0.6 % (0.0-1.0); %Eosinophils 8.7 % (0.0-10.0); %Monocytes 4.5 % (0.0-10.0); %Neutrophils 67.2 % (42.0-75.0); Hemoglobin 9.5 g/dL (14.0-18.0); Mean Corpuscular HGB CONC 31.6 g/dL (32.0-36.0); Mean Corpuscular Hemoglobin 31.1 pg (27.0-31.0); Mean Corpuscular Volume 98.3 fL (78.0-98.0); Mean Platelet Volume 9.4 fL (7.4-10.4); Platelet Count 291 thou/uL (130-400); RBC Distribution Width 18.4 % (11.5-14.5); Red Blood Cell (RBC) Count 3.05 mill/uL (4.70-6.10); White Blood Cell (WBC) Count 15.8 thou/uL (4.8-10.8)
[2021-01-17 06:36] LABS: ALT (SGPT) 14 U/L (8-55); AST (SGOT) 29 U/L (5-34); Albumin 2.9 g/dL (3.4-4.8); Alkaline Phosphatase 106 U/L (40-110); BUN (Urea Nitrogen) 55 mg/dL (8.4-25.7); Bilirubin, Total 0.5 mg/dL (0.2-1.2); Calc. Creatinine Clearance 29 mL/min (70-130); Calcium 9.6 mg/dL (7.8-10.44); Carbon Dioxide 25 mmol/L (23-31); Chloride 105 mmol/L (98-107); Globulin 4.2 g/dL (2.4-3.5); Glucose 128 mg/dL (80-115); Magnesium 1.6 mg/dL (1.6-2.6); Phosphorus 3.7 mg/dL (2.3-4.7); Potassium 4.4 mmol/L (3.5-5.1); Protein, Total 7.1 g/dL (5.8-8.1); Sodium 143 mmol/L (136-145)
[2021-01-17 06:41] LABS: Anion Gap 17 mmol/L (10-20)
[2021-01-17] MEDS: levETIRAcetam 500 mg/5 ml Oral Solution PER TUBE SCH ×2 (09:35→20:24)
[2021-01-17] MEDS: Aspirin Chewable 81 MG TAB PER TUBE SCH (09:36)
[2021-01-17] MEDS: Amoxicillin/Potassium Clav 875 MG TAB PO SCH ×2 (09:36→20:25)
[2021-01-17] MEDS: Pantoprazole 40 MG GRANULES PACKET PER TUBE SCH (09:36)
[2021-01-17] MEDS: Saccharomyces boulardii 250 MG CAP PER TUBE SCH ×2 (09:36→20:25)
[2021-01-17] MEDS: Amlodipine 10 MG TAB PER TUBE SCH (09:36)
[2021-01-17] MEDS: FLUoxetine HCl 20 MG/5 ML UDCUP PO SCH (10:39)
[2021-01-17] MEDS: Atorvastatin Calcium 40 MG TAB PER TUBE SCH (20:25)
[2021-01-17] MEDS: Melatonin 3 MG TAB PER TUBE SCH (20:25)
[2021-01-17] MEDS ORDERED: Enoxaparin Sodium 30 MG/0.3 ML SYRINGE SC SCH (21:00)
[2021-01-18 06:25] LABS: #Basophils 0.1 thou/uL (0.0-0.2); #Eosinphils 1.2 thou/uL (0.0-0.7); #Monocytes 1.1 thou/uL (0.11-0.59); %Basophils 0.9 % (0.0-1.0); %Eosinophils 8.8 % (0.0-10.0); %Lymphocytes 22.4 % (21.0-51.0); %Monocytes 7.8 % (0.0-10.0); %Neutrophils 60.1 % (42.0-75.0); Hemoglobin 10.5 g/dL (14.0-18.0); Mean Corpuscular HGB CONC 31.2 g/dL (32.0-36.0); Mean Corpuscular Hemoglobin 30.4 pg (27.0-31.0); Mean Corpuscular Volume 97.4 fL (78.0-98.0); Mean Platelet Volume 9.7 fL (7.4-10.4); Platelet Count 285 thou/uL (130-400); RBC Distribution Width 18.3 % (11.5-14.5); Red Blood Cell (RBC) Count 3.45 mill/uL (4.70-6.10); White Blood Cell (WBC) Count 13.4 thou/uL (4.8-10.8)
[2021-01-18 06:47] LABS: ALT (SGPT) 11 U/L (8-55); AST (SGOT) 21 U/L (5-34); Albumin 3.1 g/dL (3.4-4.8); Alkaline Phosphatase 110 U/L (40-110); Anion Gap 17 mmol/L (10-20); BUN (Urea Nitrogen) 55 mg/dL (8.4-25.7); Bilirubin, Total 0.5 mg/dL (0.2-1.2); Calc. Creatinine Clearance 30 mL/min (70-130); Calcium 9.9 mg/dL (7.8-10.44); Carbon Dioxide 27 mmol/L (23-31); Chloride 103 mmol/L (98-107); Globulin 4.4 g/dL (2.4-3.5); Glucose 111 mg/dL (80-115); Magnesium 1.6 mg/dL (1.6-2.6); Phosphorus 4.3 mg/dL (2.3-4.7); Protein, Total 7.5 g/dL (5.8-8.1); Sodium 143 mmol/L (136-145)
[2021-01-18 07:00] LABS: Potassium 4.1 mmol/L (3.5-5.1)
[2021-01-18] MEDS: Amlodipine 10 MG TAB PER TUBE SCH (09:16)
[2021-01-18] MEDS: Pantoprazole 40 MG GRANULES PACKET PER TUBE SCH (09:16)
[2021-01-18] MEDS: Saccharomyces boulardii 250 MG CAP PER TUBE SCH ×2 (09:16→20:17)
[2021-01-18] MEDS: Clopidogrel Bisulfate 75 MG TAB PO SCH (09:17)
[2021-01-18] MEDS: levETIRAcetam 500 mg/5 ml Oral Solution PER TUBE SCH ×2 (09:17→20:17)
[2021-01-18] MEDS: Aspirin Chewable 81 MG TAB PER TUBE SCH (09:17)
[2021-01-18] MEDS: Amoxicillin/Potassium Clav 875 MG TAB PO SCH ×2 (09:17→20:17)
[2021-01-18] MEDS: FLUoxetine HCl 20 MG/5 ML UDCUP PO SCH (09:19)
[2021-01-18 09:41] VITALS: BMI 24.1
[2021-01-18 11:37] LABS: SARS-CoV-2 PCR by NAA Not Detected (NotDetected)
[2021-01-18] MEDS: Melatonin 3 MG TAB PER TUBE SCH (20:17)
[2021-01-18] MEDS: Atorvastatin Calcium 40 MG TAB PER TUBE SCH (20:17)
[2021-01-19] MEDS: Pantoprazole 40 MG GRANULES PACKET PER TUBE SCH (08:37)
[2021-01-19] MEDS: Amoxicillin/Potassium Clav 875 MG TAB PO SCH (08:37)
[2021-01-19] MEDS: Aspirin Chewable 81 MG TAB PER TUBE SCH (08:37)
[2021-01-19] MEDS: Clopidogrel Bisulfate 75 MG TAB PO SCH (08:37)
[2021-01-19] MEDS: Saccharomyces boulardii 250 MG CAP PER TUBE SCH (08:37)
[2021-01-19] MEDS: Amlodipine 10 MG TAB PER TUBE SCH (08:37)
[2021-01-19] MEDS ORDERED: levETIRAcetam 500 mg/5 ml Oral Solution PER TUBE SCH (09:00)
[2021-01-19] MEDS: FLUoxetine HCl 20 MG/5 ML UDCUP PO SCH (10:33)
[2021-01-19 11:52] VITALS: TEMP 97.8
[2021-01-19 15:45] VITALS: BP 139/65
== END 2021-01-19 20:00 | DRG 64 ==
LOC: ERS 10:46 → T4-B 17:06 → NEURO 01-12 19:38
PROVIDERS: ADMIT Family Medicine; ATTEND Hospitalist
PROC: 4A10X4Z Monitoring of Central Nervous Electrical Activity, External Approach (ICD-10-PCS; principal; 2021-01-13)
DX: I63.511 Cerebral infarction due to unspecified occlusion or stenosis of right middle cerebral artery (principal); J69.0 Pneumonitis due to inhalation of food and vomit; J96.01 Acute respiratory failure with hypoxia; G93.41 Metabolic encephalopathy; I50.33 Acute on chronic diastolic (congestive) heart failure; N17.9 Acute kidney failure, unspecified; I62.9 Nontraumatic intracranial hemorrhage, unspecified; I69.354 Hemiplegia and hemiparesis following cerebral infarction affecting left non-dominant side; I13.0 Hypertensive heart and chronic kidney disease with heart failure and stage 1 through stage 4 chronic kidney disease, or unspecified chronic kidney disease; N18.9 Chronic kidney disease, unspecified; Z66 Do not resuscitate; D50.9 Iron deficiency anemia, unspecified; J45.909 Unspecified asthma, uncomplicated; G40.909 Epilepsy, unspecified, not intractable, without status epilepticus; R13.10 Dysphagia, unspecified; Z20.822 Contact with and (suspected) exposure to COVID-19; Z79.82 Long term (current) use of aspirin; Z79.899 Other long term (current) drug therapy; Z93.1 Gastrostomy status; I69.391 Dysphagia following cerebral infarction; I69.320 Aphasia following cerebral infarction
CPT/HCPCS: 36415; 36416; 70450; 70496; 70498; 70551; 71045; 71260; 76705; 80048; 80053; 80061; 81001; 82607; 82728; 82746; 82805; 83036; 83540; 83550; 83605; 83735; 83880; 84100; 84145; 84443; 84484; 85025; 86140; 86850; 86900; 86901; 87040; 87081; 87449; 87899; 93005; 93010; 93306; 93880; 95712; 95819; 95957; 96365; 96366; 96367; J0692; J1650; J1940; J2060; J3370; J3490; U0002; U0003; U0005

== ENCOUNTER 2021-02-07 01:59 | Emergency (ER) | payer MEDICARE, OTHER ==
[2021-02-07] MEDS ORDERED: GASTROGRAFIN 30 ML BOT ONE (10:05)
== END 2021-02-07 03:34 ==
LOC: ERS 01:59
DX: K94.23 Gastrostomy malfunction (principal); Z86.73 Personal history of transient ischemic attack (TIA), and cerebral infarction without residual deficits
CPT/HCPCS: 43761; 74018; Q9963

== ENCOUNTER 2021-02-15 08:25 | Emergency (ER) | payer MEDICARE, OTHER ==
[2021-02-15] MEDS ORDERED: GASTROGRAFIN 30 ML BOT ONE (14:01)
== END 2021-02-15 12:15 ==
LOC: ERS 08:25
DX: Z43.1 Encounter for attention to gastrostomy (principal); Z86.73 Personal history of transient ischemic attack (TIA), and cerebral infarction without residual deficits
CPT/HCPCS: 43762; 74018; Q9963